=== PATIENT | male | born 1970 | race Caucasian/White ===

== ENCOUNTER 2016-12-13 10:51 | Inpatient (IN) | payer OTHER ==
[2016-12-13 11:54] VITALS: BMI 27.1
--- NOTE | 2016-12-13 15:00 | HP ---
COWS - Scale Resting Pulse: 1= [place] 81-100 Sweatin= Chills/Flushing Restless Observation: 3= Extraneous Movement Pupil Size: 2= Moderately Dilated Bone or Joint Aches: 4=Acute Joint/Muscle Pain Runny Nose/ Eye Tearin= Runny Nose/Eyes GI Upset > 30mins: 1= Stomach Cramp Tremor Observation: 1= Tremor [place], Not Seen Yawning Observation: 2= >3x During Session Anxiety or Irritability: 1=Feels Anxious/Irritable Goose Flesh Skin: 0=Smooth Skin COWS Score: 18 CIWA Score - CIWA Score Nausea/Vomitin-No Nausea/No Vomiting Muscle Tremors: 3 Anxiety: 5 Agitation: 4-Moderately Restless Paroxysmal Sweats: 1-Minimal Palms Moist Orientation: 0-Oriented Tacttile Disturbances: 3-Moderate Itch/Numb/Burn Auditory Disturbances: 0-None Visual Disturbances: 0-None Headache: 0-None Present CIWA-Ar Total Score: 16 Admission ROS BHS - HPI Chief Complaint: DETOX TX FOR HEROIN AND ALCOHOL DEPENDENCE Allergies/Adverse Reactions: Allergies Allergy/AdvReac Type Severity Reaction Status Date / Time No Known Allergies Allergy Verified 12/13/16 12:14 History of Present Illness: 46 Y/O H/M WITH A HX OF ALCOHOL AND HEROIN DEPENDENCE SEEKING DETOX TX. FIRST TIME HERE. Exam Limitations: No Limitations - Ebola screening Have you traveled outside of the country in the last 21 days: No Have you had contact with anyone from an Ebola affected area: No Have you been sick,other than usual withdrawal symptoms: No Do you have a fever: No - Review of Systems Constitutional: Chills, Night Sweats, Changes in sleep EENT: reports: Blurred Vision (WEARS GLASSES), Tearing, Nose Congestion, Dental Problems (MISSING TEETH) Respiratory: reports: Cough, Wheezing ("I WHEEZE SOMETIMES BECAUSE I SMOKE TOO MUCH". DENIES ASTHMA OR COPD.), Productive cough Cardiac: reports: No Symptoms Reported GI: reports: Constipated, Diarrhea : reports: No Symptoms Reported Musculoskeletal: reports: Back Pain, Muscle Pain Integumentary: reports: Bruising (IVD INJ SITES--BOTH ARMS) Neuro: reports: Tremors, Unsteady Gait Endocrine: reports: No Symptoms Reported Hematology: reports: No Symptoms Reported Psychiatric: reports: Orientated x3, Anxious, Depressed (AND ANXIETY) Other Systems: Reviewed and Negative Patient History - Patient Medical History Hx Anemia: No Hx Asthma: No Hx Chronic Obstructive Pulmonary Disease (COPD): No Hx Cardiac Disorders: No Hx Hypertension: Yes (ON MED) Hx Hypercholesterolemia: Yes HX Cerebrovascular Accident: No Hx Seizures: No Hx Diabetes: No Hx Gastrointestinal Disorders: No Hx Genitourinary Disorders: No Hx Sexually Transmitted Disorders: No Hx Renal Disease (ESRD): No Hx Thyroid Disease: No Hx Human Immunodeficiency Virus (HIV): Yes (SINCE 1992; ON MEDS;HX PCP PNEUMONIA /AIDS.) Hx Hepatitis C: Yes Hx Depression: Yes Hx Suicide Attempt: No (DENIES) Hx Schizophrenia: No - Patient Surgical History Past Surgical History: No Hx Neurologic Surgery: No Hx Cataract Extraction: No Hx Cardiac Surgery: No Hx Lung Surgery: No Hx Breast Surgery: No Hx Breast Biopsy: No Hx Abdominal Surgery: No Hx Appendectomy: No Hx Cholecystectomy: No Hx Genitourinary Surgery: No Hx Orthopedic Surgery: No Anesthesia Reaction: No - PPD History Previous Implant?: Yes Documented Results: Negative w/o proof Implanted On Prior [facility] Admission?: No PPD to be Administered?: Yes - Reproductive History Patient is a Female of Child Bearing Age (11 -55 yrs old): No (MALE) - Smoking Cessation Smoking history: Current every day smoker Have you smoked in the past 12 months: Yes Aproximately how many cigarettes per day: 20 Hx Chewing Tobacco Use: No Initiated information on smoking cessation: Yes 'Breaking Loose' booklet given: 12/13/16 - Substance & Tx. History Hx Alcohol Use: Yes (BEER/VODKA) Hx Substance Use: Yes (HEROIN) Substance Use Type: Alcohol, Heroin Hx Substance Use Treatment: Yes - Substances Abused Heroin Route: Injection Frequency: Daily Amount used: 5-8 bags Age of first use: 15 Date of Last Use: 12/13/16 Alcohol Route: Oral Frequency: Daily Amount used: 2-3 40 oz beers Age of first use: 15 Date of Last Use: 12/12/16 Family Disease History - Family Disease History Family History: Denies Admission Physical Exam BHS - Vital Signs Vital Signs: Vital Signs - 24 hr 12/13/16 11:52 Temperature 98.3 F Pulse Rate 82 Respiratory 20 Rate Blood Pressure 130/71 - Physical General Appearance: Yes: Moderate Distress, Irritable, Anxious HEENTM: Yes: EOMI, Normocephalic, LINDA, Pharynx Normal, Nasal Congestion Respiratory: Yes: Chest Non-Tender, Lungs Clear (GROSSLY CLEAR), No Respiratory Distress Neck: Yes: Supple, Trachea in good position Breast: Yes: Breast Exam Deferred Cardiology: Yes: Regular Rhythm, Regular Rate, S1, S2 Abdominal: Yes: Normal Bowel Sounds, Non Tender, Soft Genitourinary: Yes: Other (N/C) Back: Yes: Within Normal Limits Musculoskeletal: Yes: full range of Motion, Gait Steady Extremities: Yes: Normal Range of Motion, Non-Tender 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: 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 NML intact, Fully Oriented, Alert Integumentary: Yes: Dry, Warm, Track [place] (RIGHT ELBOW > LEFT ELBOW) Lymphatic: Yes: Within Normal Limits - Diagnostic (1) Alcohol dependence with uncomplicated withdrawal Current Visit: Yes Status: Acute (2) Opioid dependence with withdrawal Current Visit: Yes Status: Acute (3) AIDS (acquired immune deficiency syndrome) Current Visit: Yes Status: Chronic (4) Hypertension Current Visit: Yes Status: Chronic Qualifiers: Hypertension type: essential hypertension Qualified Code(s): I10 - Essential (primary) hypertension (5) History of hepatitis C Current Visit: Yes Status: Chronic Cleared for Admission [facility] - Detox or Rehab [facility] Level of Care: Medically Managed Detox Regimen/Protocol: Methadone/Librium S Breath Alcohol Content Breath Alcohol Content: 0 Urine Drug Screen - Results Drug Screen Negative: No Urine Drug Screen Results: OPI-Opiates, BZO-Benzodiazepines, TCA-Tricyclic Antidepress
[2016-12-13] MEDS ORDERED: LOPERAMIDE HCL 2 MG CAPSULE PO PRN (15:08)
[2016-12-13] MEDS ORDERED: ACETAMINOPHEN 325 MG TABLET (FP) PO PRN (15:08)
[2016-12-13] MEDS ORDERED: MAGNESIUM CITRATE 300 ML BOTTLE PO PRN (15:08)
[2016-12-13] MEDS ORDERED: diphenhydrAMINE HCL 50 MG CAPSULE PO PRN (15:08)
[2016-12-13] MEDS ORDERED: NICOTINE POLACRILEX 4 MG GUM BUC PRN (15:08)
[2016-12-13] MEDS ORDERED: P-EPHED 60MG/TRIPROLIDI 2.5MG TABLET PO PRN (15:08)
[2016-12-13] MEDS ORDERED: MAG HYDROX/AL HYDROX/SIMETH 30 ML UNIT-DOSE CUP PO PRN (15:08)
[2016-12-13] MEDS ORDERED: MENTHOL/PHENOL 1 EACH UD MM PRN (15:08)
[2016-12-13] MEDS ORDERED: guaiFENesin/D-METHORPHAN HB 10 ML UNIT-DOSE CUPS PO PRN (15:08)
[2016-12-13] MEDS ORDERED: hydrOXYzine PAMOATE 25 MG CAPSULE (FP) PO PRN (15:08)
[2016-12-13] MEDS ORDERED: MAGNESIUM HYDROX 2400MG/30ML ORAL SUSPENSION 30 ML CUP PO PRN (15:08)
[2016-12-13] MEDS ORDERED: chlordiazePOXIDE HCL 25 MG CAPSULE PO ONE (15:21)
[2016-12-13] MEDS ORDERED: METHADONE HCL 10 MG TABLET (FOR DETOX USE ONLY) PO ONE ×2 (15:22→23:00)
[2016-12-13] MEDS ORDERED: PATIENT'S OWN MEDICATION (NON-FORMULARY) (Lisinopril/Hydrochlorothiazide [Lisinopril-Hctz PO SCH ×2 (15:30→15:44)
[2016-12-13] MEDS: NICOTINE 21 MG/24 HOURS TOPICAL PATCH TD SCH (15:58)
[2016-12-13] MEDS ORDERED: HYDROCHLOROTHIAZIDE 12.5 MG CAPSULE (FP) PO ONE (16:45)
[2016-12-13] MEDS: chlordiazePOXIDE HCL 25 MG CAPSULE PO SCH ×2 (17:49→22:03)
[2016-12-13 20:54] LABS: URINE APPEARANCE CLEAR; URINE BILIRUBIN NEGATIVE (NEGATIVE); URINE BLOOD NEGATIVE (NEGATIVE); URINE COLOR LTYELLOW; URINE GLUCOSE (UA) NEGATIVE (NEGATIVE); URINE KETONE NEGATIVE (NEGATIVE); URINE LEUK ESTERASE NEGATIVE (NEGATIVE); URINE NITRITE NEGATIVE (NEGATIVE); URINE PROTEIN NEGATIVE (NEGATIVE); URINE UROBILINOGEN NEGATIVE E.U./dl (0.2-1.0)
[2016-12-13] MEDS: BACITRACIN 0.9 GM PACKET TP SCH (22:02)
[2016-12-13] MEDS: THIAMINE HCL 100 MG TABLET (FP) PO SCH (22:02)
[2016-12-13] MEDS: PATIENT'S OWN MEDICATION (NON-FORMULARY) (Darunavir/Cobicistat [Prezcobix 800 Mg-150 Mg Ta PO SCH (22:02)
[2016-12-13] MEDS: PATIENT'S OWN MEDICATION (NON-FORMULARY) (Abacavir Sulfate/Lamivudine [Abacavir-Lamivudine PO SCH (22:02)
[2016-12-14] MEDS: chlordiazePOXIDE HCL 25 MG CAPSULE PO SCH ×4 (06:12→22:08)
--- NOTE | 2016-12-14 09:37 | CONSULT ---
[facility] Psychiatric Consult - Data Date of interview: 12/14/16 Admission source: [facility] Identifying data: Second admission to [facility] for this 46 y/o male seeking detox treatment on for heroin and alcohol dependence.Patient is single without children,domiciled,unemployed and supported on [email or web address] funds. Substance Abuse History: - Smoking Cessation. Smoking history: Current every day smoker. Have you smoked in the past 12 months: Yes. Aproximately how many cigarettes per day: 20. Hx Chewing Tobacco Use: No. Initiated information on smoking cessation: Yes. 'Breaking Loose' booklet given: 12/13/16. - Substance & Tx. History. Hx Alcohol Use: Yes (BEER/VODKA). Hx Substance Use: Yes (HEROIN ). Substance Use Type: Alcohol, Heroin. Hx Substance Use Treatment: Yes. - Substances Abused. Heroin. Route: Injection. Frequency: Daily. Amount used: 5-8 bags. Age of first use: 15. Date of Last Use: 12/13/16. Alcohol. Route: Oral. Frequency: Daily. Amount used: 2-3 40 oz beers. Age of first use: 15. Date of Last Use: 12/12/16. These data are reviewed with the patient in this interview.He confirmed ses patterns of abuse. Medical History: Remarkable for HIV infection since 1992,hypertension,hepatitis C. Psychiatric History: Patient denies history of psychiatric hospitalizations.However he reports that he has been seeing his primary care physician for complaint of insomnia and dysphoria.Mr Moore is prescribed elavil 100 mg/hs + remeron 30 mg/hs.Last taken on 12/12/16 as per self-report.No reported history of suicide attempts. Physical/Sexual Abuse/Trauma History: Patient denies. Mental Status Exam - Mental Status Exam Alert and Oriented to: Time, Place, Person Cognitive Function: Good Patient Appearance: Well Groomed Mood: Nervous, Withdrawn Affect: Mood Congruent Patient Behavior: Fatigued, Talkative, Appropriate, Cooperative Speech Pattern: Clear, Appropriate Voice Loudness: Normal Thought Process: Intact Thought Disorder: Not Present Hallucinations: Denies Suicidal Ideation: Denies Homicidal Ideation: Denies Insight/Judgement: Poor Sleep: Poorly, Difficulty falling asleep Appetite: Good Muscle strength/Tone: Normal Gait/Station: Normal Psychiatric Findings - Problem List ([place] 1, 2,3) (1) Alcohol dependence with uncomplicated withdrawal Current Visit: Yes Status: Acute (2) Opioid dependence with withdrawal Current Visit: Yes Status: Acute (3) Nicotine dependence Current Visit: Yes Status: Acute (4) Substance-induced sleep disorder Current Visit: Yes Status: Acute (5) AIDS (acquired immune deficiency syndrome) Current Visit: Yes Status: Chronic (6) History of hepatitis C Current Visit: Yes Status: Chronic (7) Hypertension Current Visit: Yes Status: Chronic Qualifiers: Hypertension type: essential hypertension Qualified Code(s): I10 - Essential (primary) hypertension - Initial Treatment Plan Initial Treatment Plan: Psychoeducation.Detoxification.Medications :elavil 50 mg po hs + remeron 30 mg po hs.Side effects/benefits discussed with the patient.He agrees with plan.Observation.
[2016-12-14] MEDS ORDERED: METHADONE HCL 10 MG TABLET (FOR DETOX USE ONLY) PO SCH (10:00)
[2016-12-14 10:06] LABS: MCH 27.7 pg (25.7-33.7); MCHC 32.7 g/dl (32.0-35.9); MEAN CELL VOLUME 84.6 fl (80-96); MEAN PLT VOLUME 8.1 fl (7.5-11.1); PLATELET COUNT 263 K/MM3 (134-434)
[2016-12-14] MEDS: PRENATAL VITAMINS W/ FOLIC ACID TABLET (FP) PO SCH (10:07)
[2016-12-14] MEDS: NICOTINE 21 MG/24 HOURS TOPICAL PATCH TD SCH (10:08)
[2016-12-14] MEDS: PROPRANOLOL HCL 10 MG TABLET (FP) PO SCH (10:08)
[2016-12-14] MEDS: HYDROCHLOROTHIAZIDE 12.5 MG CAPSULE (FP) PO SCH (10:08)
[2016-12-14] MEDS: BACITRACIN 0.9 GM PACKET TP SCH ×2 (10:09→22:07)
--- NOTE | 2016-12-14 10:34 | PN ---
S CIWA - CIWA Score Nausea/Vomitin Muscle Tremors: 3 Anxiety: 2 Agitation: 3 Paroxysmal Sweats: 2 Orientation: 0-Oriented Tacttile Disturbances: 0-None Auditory Disturbances: 1-Very Mild Visual Disturbances: 2-Mild Sensitivity Headache: 2-Mild CIWA-Ar Total Score: 17 S COWS - Scale Resting Pulse: 0= [place] 80 or Below Sweatin=Flushed/Facial Moisture Restless Observation: 1= Difficult to Sit Still Pupil Size: 2= Moderately Dilated Bone or Joint Aches: 0= None Runny Nose/ Eye Tearin= Runny Nose/Eyes GI Upset > 30mins: 0= None Tremor Observation of Outstretched Hands: 1= Tremor [place], Not Seen Yawning Observation: 1= 1-2x During Session Anxiety or Irritability: 2=Irritable/Anxious Goose Flesh Skin: 0=Smooth Skin COWS Score: 11 [facility] Progress Note (SOAP) Objective: 12/14/16 10:33 Laboratory Tests 12/13/16 12/14/16 19:00 06:00 WBC 8.0 RBC 4.44 Hgb 12.3 Hct 37.6 MCV 84.6 MCHC 32.7 RDW 16.0 H Plt Count 263 MPV 8.1 Urine Color Ltyellow Urine Appearance Clear Urine pH 7.0 Ur Specific [place] 1.012 Urine Protein Negative Urine Glucose (UA) Negative Urine Ketones Negative Urine Blood Negative Urine Nitrite Negative Urine Bilirubin Negative Urine Urobilinogen Negative Ur Leukocyte Esterase Negative Vital Signs - 24 hr 12/13/16 12/13/16 12/13/16 11:52 17:50 22:09 Temperature 98.3 F 98.4 F 97.9 F Pulse Rate 82 79 81 Respiratory 20 18 18 Rate Blood Pressure 130/71 122/69 141/95 12/14/16 12/14/16 12/14/16 00:30 03:30 06:44 Temperature 97.4 F L Pulse Rate 65 Respiratory 18 18 16 Rate Blood Pressure 102/51 12/14/16 09:42 Temperature 97.9 F Pulse Rate 78 Respiratory 16 Rate Blood Pressure 109/61 remainder pending Assessment: 12/14/16 10:33 ongoing withdrawal Plan: continue detox psychiatrist
[2016-12-14 10:39] LABS: ALBUMIN 3.6 g/dl (3.4-5.0); ALK PHOS 111 U/L (45-117); ANION GAP 10 (8-16); BILIRUBIN,TOTAL 0.3 mg/dL (0.2-1.0); CALCIUM 8.9 mg/dL (8.5-10.1); CO2 25 mmol/L (21-32); CREATININE 0.9 mg/dL (0.7-1.3); GLUCOSE,RANDOM 119 mg/dL (74-106); SGOT/AST 16 U/L (15-37); SGPT/ALT 22 U/L (12-78); TOT PROT 8.5 g/dl (6.4-8.2)
[2016-12-14 11:04] LABS: SICKLE CELL SCREEN NEGATIVE (NEGATIVE)
--- NOTE | 2016-12-14 16:13 | EKG ---
Test Reason : Blood Pressure : / mmHG Vent. Rate : 072 BPM Atrial Rate : 072 BPM P-R Int : 148 ms QRS Dur : 094 ms QT Int : 384 ms P-R-T Axes : 054 031 056 degrees QTc Int : 420 ms NORMAL SINUS RHYTHM NO PREVIOUS ECGS AVAILABLE Confirmed by SEAN SAUCEDO MD ([id number]) on 12/14/2016 4:12:40 PM Referred By: Srinivasa Josue Confirmed By:SEAN SAUCEDO MD
[2016-12-14] MEDS: AMITRIPTYLINE HCL 25 MG TABLET (FP) PO SCH (22:07)
[2016-12-14] MEDS: THIAMINE HCL 100 MG TABLET (FP) PO SCH (22:07)
[2016-12-14] MEDS: PATIENT'S OWN MEDICATION (NON-FORMULARY) (Darunavir/Cobicistat [Prezcobix 800 Mg-150 Mg Ta PO SCH (22:07)
[2016-12-14] MEDS: PATIENT'S OWN MEDICATION (NON-FORMULARY) (Abacavir Sulfate/Lamivudine [Abacavir-Lamivudine PO SCH (22:07)
[2016-12-14] MEDS: MIRTAZAPINE 30 MG TABLET (FP) PO SCH (22:08)
[2016-12-15] MEDS: IBUPROFEN 400 MG TABLET (FP) PO PRN ×2 (00:34→11:16)
[2016-12-15] MEDS: chlordiazePOXIDE HCL 25 MG CAPSULE PO SCH ×2 (05:14→10:11)
[2016-12-15] MEDS: NICOTINE 21 MG/24 HOURS TOPICAL PATCH TD SCH (09:38)
[2016-12-15] MEDS ORDERED: METHADONE HCL 5 MG TABLET (FOR DETOX USE ONLY) PO SCH (10:00)
[2016-12-15] MEDS: HYDROCHLOROTHIAZIDE 12.5 MG CAPSULE (FP) PO SCH (10:08)
[2016-12-15] MEDS: PRENATAL VITAMINS W/ FOLIC ACID TABLET (FP) PO SCH (10:08)
[2016-12-15] MEDS: BACITRACIN 0.9 GM PACKET TP SCH ×2 (10:08→22:11)
[2016-12-15] MEDS: PROPRANOLOL HCL 10 MG TABLET (FP) PO SCH (10:08)
--- NOTE | 2016-12-15 10:37 | PN ---
[facility] CIWA - CIWA Score Nausea/Vomitin Muscle Tremors: 4-Moderate,w/Arms Extend Anxiety: 4-Mod. Anxious/Guarded Agitation: 4-Moderately Restless Paroxysmal Sweats: 3 Orientation: 0-Oriented Tacttile Disturbances: 0-None Auditory Disturbances: 0-None Visual Disturbances: 0-None Headache: 0-None Present CIWA-Ar Total Score: 18 [facility] COWS - Scale Resting Pulse: 0= [place] 80 or Below Sweatin= Chills/Flushing Restless Observation: 1= Difficult to Sit Still Pupil Size: 1= Pupils >than Normal Bone or Joint Aches: 1= Mild Discomfort Runny Nose/ Eye Tearin= Nasal Congestion GI Upset > 30mins: 2= Nausea/Diarrhea Tremor Observation of Outstretched Hands: 2= Slight Tremor Visible Yawning Observation: 1= 1-2x During Session Goose Flesh Skin: 3=Piloerection [facility] Progress Note (SOAP) Subjective: nausea, sweats, interrutped sleep, anxiety, tremors Objective: 12/15/16 10:36 Vital Signs - 24 hr 12/14/16 12/14/16 12/14/16 13:55 17:36 21:31 Temperature 97.9 F 97.9 F 97.0 F L Pulse Rate 68 66 79 Respiratory 18 18 18 Rate Blood Pressure 98/60 115/57 109/64 12/15/16 12/15/16 12/15/16 00:30 03:24 06:00 Temperature 97.3 F L Pulse Rate 62 Respiratory 18 18 18 Rate Blood Pressure 93/60 12/15/16 10:12 Temperature 97.5 F L Pulse Rate 77 Respiratory 16 Rate Blood Pressure 117/61 Laboratory Tests 12/13/16 12/14/16 12/14/16 19:00 06:00 06:00 WBC 8.0 RBC 4.44 Hgb 12.3 Hct 37.6 MCV 84.6 MCHC 32.7 RDW 16.0 H Plt Count 263 MPV 8.1 Sickle Cell Screen Negative Sodium 135 L Potassium 4.4 Chloride 100 Carbon Dioxide 25 Anion Gap 10 BUN 12 Creatinine 0.9 Creat Clearance w eGFR > 60 Random Glucose 119 H Calcium 8.9 Total Bilirubin 0.3 AST 16 ALT 22 Alkaline Phosphatase 111 Total Protein 8.5 H Albumin 3.6 Urine Color Ltyellow Urine Appearance Clear Urine pH 7.0 Ur Specific [place] 1.012 Urine Protein Negative Urine Glucose (UA) Negative Urine Ketones Negative Urine Blood Negative Urine Nitrite Negative Urine Bilirubin Negative Urine Urobilinogen Negative Ur Leukocyte Esterase Negative RPR Titer 12/14/16 06:00 WBC RBC Hgb Hct MCV MCHC RDW Plt Count MPV Sickle Cell Screen Sodium Potassium Chloride Carbon Dioxide Anion Gap BUN Creatinine Creat Clearance w eGFR Random Glucose Calcium Total Bilirubin AST ALT Alkaline Phosphatase Total Protein Albumin Urine Color Urine Appearance Urine pH Ur Specific [place] Urine Protein Urine Glucose (UA) Urine Ketones Urine Blood Urine Nitrite Urine Bilirubin Urine Urobilinogen Ur Leukocyte Esterase RPR Titer Nonreactive Assessment: 12/15/16 10:36 withdrawal sx Plan: cont detox, fluids, ambulation
[2016-12-15] MEDS: chlordiazePOXIDE 5 MG CAPSULE PO SCH (17:16)
[2016-12-15] MEDS: MIRTAZAPINE 30 MG TABLET (FP) PO SCH (22:06)
[2016-12-15] MEDS: AMITRIPTYLINE HCL 25 MG TABLET (FP) PO SCH (22:06)
[2016-12-15] MEDS: THIAMINE HCL 100 MG TABLET (FP) PO SCH (22:06)
[2016-12-15] MEDS: PATIENT'S OWN MEDICATION (NON-FORMULARY) (Darunavir/Cobicistat [Prezcobix 800 Mg-150 Mg Ta PO SCH (22:06)
[2016-12-15] MEDS: PATIENT'S OWN MEDICATION (NON-FORMULARY) (Abacavir Sulfate/Lamivudine [Abacavir-Lamivudine PO SCH (22:11)
[2016-12-16] MEDS: chlordiazePOXIDE 5 MG CAPSULE PO SCH ×2 (01:04→06:41)
--- NOTE | 2016-12-16 10:16 | DS ---
[facility] Detox Discharge Summary Admission Date: 12/13/16 Discharge Date: 12/16/16 - History Present History: Alcohol Dependence, Opioid Dependence Pertinent Past History: AIDS HTN HEP C - Physical Exam Results Vital Signs: Vital Signs Temperature 97.5 F L 12/16/16 06:00 Pulse Rate 67 12/16/16 06:00 Respiratory Rate 18 12/16/16 06:00 Blood Pressure 102/58 12/16/16 06:00 O2 Sat by Pulse Oximetry (%) Pertinent Admission Physical Exam Findings: WITHDRAWAL SX. Laboratory Last Values WBC 8.0 K/mm3 (4.0-10.0) 12/14/16 06:00 RBC 4.44 M/mm3 (4.00-5.60) 12/14/16 06:00 Hgb 12.3 GM/dL (11.7-16.9) 12/14/16 06:00 Hct 37.6 % (35.4-49) 12/14/16 06:00 MCV 84.6 fl (80-96) 12/14/16 06:00 MCHC 32.7 g/dl (32.0-35.9) 12/14/16 06:00 RDW 16.0 % (11.9-15.9) H 12/14/16 06:00 Plt Count 263 K/MM3 (134-434) 12/14/16 06:00 MPV 8.1 fl (7.5-11.1) 12/14/16 06:00 Sickle Cell Screen Negative (NEGATIVE) 12/14/16 06:00 Sodium 135 mmol/L (136-145) L 12/14/16 06:00 Potassium 4.4 mmol/L (3.5-5.1) 12/14/16 06:00 Chloride 100 mmol/L (98-107) 12/14/16 06:00 Carbon Dioxide 25 mmol/L (21-32) 12/14/16 06:00 Anion Gap 10 (8-16) 12/14/16 06:00 BUN 12 mg/dL (7-18) 12/14/16 06:00 Creatinine 0.9 mg/dL (0.7-1.3) 12/14/16 06:00 Creat Clearance w eGFR > 60 (>60) 12/14/16 06:00 Random Glucose 119 mg/dL (74-106) H 12/14/16 06:00 Calcium 8.9 mg/dL (8.5-10.1) 12/14/16 06:00 Total Bilirubin 0.3 mg/dL (0.2-1.0) 12/14/16 06:00 AST 16 U/L (15-37) 12/14/16 06:00 ALT 22 U/L (12-78) 12/14/16 06:00 Alkaline Phosphatase 111 U/L (45-117) 12/14/16 06:00 Total Protein 8.5 g/dl (6.4-8.2) H 12/14/16 06:00 Albumin 3.6 g/dl (3.4-5.0) 12/14/16 06:00 Urine Color Ltyellow 12/13/16 19:00 Urine Appearance Clear 12/13/16 19:00 Urine pH 7.0 (5.0-8.0) 12/13/16 19:00 Ur Specific [place] 1.012 (1.001-1.035) 12/13/16 19:00 Urine Protein Negative (NEGATIVE) 12/13/16 19:00 Urine Glucose (UA) Negative (NEGATIVE) 12/13/16 19:00 Urine Ketones Negative (NEGATIVE) 12/13/16 19:00 Urine Blood Negative (NEGATIVE) 12/13/16 19:00 Urine Nitrite Negative (NEGATIVE) 12/13/16 19:00 Urine Bilirubin Negative (NEGATIVE) 12/13/16 19:00 Urine Urobilinogen Negative E.U./dl (0.2-1.0) 12/13/16 19:00 Ur Leukocyte Esterase Negative (NEGATIVE) 12/13/16 19:00 RPR Titer Nonreactive (NONREACTIVE) 12/14/16 06:00 LABS NOTED - Medication Discharge Medications: Ambulatory Orders Abacavir Sulfate/Lamivudine [Abacavir-Lamivudine 600-300 mg] 1 each PO DAILY Amitriptyline HCl [Elavil -] 100 mg PO HS 12/13/16 Darunavir/Cobicistat [Prezcobix 800 mg-150 mg Tablet] 1 each PO DAILY 12/13/16 Lisinopril/Hydrochlorothiazide [Lisinopril-Hctz 10-12.5 mg Tab] 1 each PO DAILY 12/13/16 Mirtazapine [Remeron -] 30 mg PO HS 12/13/16 Propranolol HCl [Inderal -] 10 mg PO DAILY 12/13/16 Mirtazapine [Remeron -] 30 mg PO DAILY #30 tablet 12/15/16 - Diagnosis (1) Alcohol dependence with uncomplicated withdrawal Current Visit: Yes Status: Acute (2) Nicotine dependence Current Visit: Yes Status: Acute Qualifiers: Nicotine product type: cigarettes Substance use status: uncomplicated Qualified Code(s): F17.210 - Nicotine dependence, cigarettes, uncomplicated (3) Opioid dependence with withdrawal Current Visit: Yes Status: Acute (4) Substance-induced sleep disorder Current Visit: Yes Status: Acute (5) AIDS (acquired immune deficiency syndrome) Current Visit: Yes Status: Chronic (6) History of hepatitis C Current Visit: Yes Status: Chronic (7) Hypertension Current Visit: Yes Status: Chronic Qualifiers: Hypertension type: essential hypertension Qualified Code(s): I10 - Essential (primary) hypertension - AMA Did Patient Leave Against Medical Advice: Yes
[2016-12-16 10:25] VITALS: BP 116/66; PULSE 93; TEMP 96.3
[2016-12-16] MEDS ORDERED: chlordiazePOXIDE HCL 10 MG CAPSULE PO SCH (17:00)
[2016-12-17] MEDS ORDERED: METHADONE HCL 10 MG TABLET (FOR DETOX USE ONLY) PO SCH (10:00)
[2016-12-18] MEDS ORDERED: METHADONE HCL 5 MG TABLET (FOR DETOX USE ONLY) PO SCH (06:00)
== END 2016-12-16 09:15 | disposition left against medical advice (07) | DRG 770 ==
LOC: YASAS 10:51 → Y6N 12:47
PROVIDERS: ADMIT Internal Medicine Addiction Medicine; ATTEND Internal Medicine Addiction Medicine
PROC: HZ2ZZZZ Detoxification Services for Substance Abuse Treatment (ICD-10-PCS; principal; 2016-12-13)
DX: F11.23 Opioid dependence with withdrawal (principal); F10.230 Alcohol dependence with withdrawal, uncomplicated; F17.210 Nicotine dependence, cigarettes, uncomplicated; F19.282 Other psychoactive substance dependence with psychoactive substance-induced sleep disorder; B20 Human immunodeficiency virus [HIV] disease; B18.2 Chronic viral hepatitis C; I10 Essential (primary) hypertension; E78.00 Pure hypercholesterolemia, unspecified
CPT/HCPCS: 36415; 80053; 81003; 85027; 85660; 86593; 93005; 93010

== ENCOUNTER 2017-01-30 12:25 | Inpatient (IN) | payer OTHER ==
[2017-01-30 15:11] VITALS: BMI 29.0
--- NOTE | 2017-01-30 15:49 | HP ---
COWS - Scale Resting Pulse: 2= [place] 101-120 Sweatin=Flushed/Facial Moisture Restless Observation: 3= Extraneous Movement Pupil Size: 2= Moderately Dilated Bone or Joint Aches: 2= Severe Diffuse Aches Runny Nose/ Eye Tearin= Runny Nose/Eyes GI Upset > 30mins: 3= Vomiting/Diarrhea Tremor Observation: 2= Slight Tremor Visible Yawning Observation: 2= >3x During Session Anxiety or Irritability: 2=Irritable/Anxious Goose Flesh Skin: 0=Smooth Skin COWS Score: 22 Admission ROS S - HPI Chief Complaint: I NEED HELP TO STOP USING HEROIN Allergies/Adverse Reactions: Allergies Allergy/AdvReac Type Severity Reaction Status Date / Time No Known Allergies Allergy Verified 01/30/17 15:31 History of Present Illness: THIS 46 YEARS OLD MAL WITH HEROIN DEPENDENCE,WITHDRAWAL SYMPTOM,LAST DETOX [facility] 12/04 [facility] NOT COMPLETED HIV SINCE 1982 WEIGHT LOSS HEPATITTIS C HAS BEEN FOLLOWED UP WITH PMD ANXIETY AND DEPRESSION NO SIGNIFICANT PERIOD OF SOBRIETY Exam Limitations: No Limitations - Ebola screening Have you traveled outside of the country in the last 21 days: No Have you had contact with anyone from an Ebola affected area: No Have you been sick,other than usual withdrawal symptoms: No Do you have a fever: No - Review of Systems Constitutional: Chills, Diaphoresis, Loss of Appetite, Malaise, Night Sweats, Changes in sleep, Unintentional Wgt. Loss, Other EENT: reports: Tearing, Nose Congestion Respiratory: reports: No Symptoms reported Cardiac: reports: Palpitations GI: reports: Diarrhea, Nausea, Vomiting, Abdominal cramping : reports: No Symptoms Reported Musculoskeletal: reports: Back Pain, Joint Pain, Muscle Pain, Joint Stiffness Integumentary: reports: Dryness Neuro: reports: Headache, Tremors Endocrine: reports: No Symptoms Reported Hematology: reports: No Symptoms Reported Psychiatric: reports: Anxious, Depressed Patient History - Patient Medical History Hx Anemia: No Hx Asthma: No Hx Chronic Obstructive Pulmonary Disease (COPD): No Hx Cancer: No Hx Cardiac Disorders: No Hx Hypertension: Yes (ON MEDS.) Hx Hypercholesterolemia: Yes Hx Pacemaker: No HX Cerebrovascular Accident: No Hx Seizures: No Hx Dementia: No Hx Diabetes: No Hx Gastrointestinal Disorders: No Hx Liver Disease: No Hx Genitourinary Disorders: No Hx Sexually Transmitted Disorders: No Hx Renal Disease (ESRD): No Hx Thyroid Disease: No Hx Human Immunodeficiency Virus (HIV): Yes (SINCE 1992; ON MEDS;HX PCP PNEUMONIA /AIDS.) Hx Hepatitis C: Yes (UNDER THE CARE OF PMD AND BEING MONITOR) Hx Depression: Yes Hx Suicide Attempt: No Hx Bipolar Disorder: No Hx Schizophrenia: No Other Medical History: NO SUICIDAL,NO HOMICIDAL - Patient Surgical History Past Surgical History: No Hx Neurologic Surgery: No Hx Cataract Extraction: No Hx Cardiac Surgery: No Hx Lung Surgery: No Hx Breast Surgery: No Hx Breast Biopsy: No Hx Abdominal Surgery: No Hx Appendectomy: No Hx Cholecystectomy: No Hx Genitourinary Surgery: No Hx Orthopedic Surgery: No Anesthesia Reaction: No - PPD History Previous Implant?: Yes Documented Results: Negative w/proof Implanted On Prior [facility] Admission?: Yes Date: 12/15/16 Results: 0 MM PPD to be Administered?: No - Smoking Cessation Smoking history: Current every day smoker Have you smoked in the past 12 months: Yes Aproximately how many cigarettes per day: 20 Hx Chewing Tobacco Use: No Initiated information on smoking cessation: Yes 'Breaking Loose' booklet given: 01/30/17 - Substance & Tx. History Hx Alcohol Use: No Hx Substance Use: Yes Substance Use Type: Heroin Hx Substance Use Treatment: Yes ([facility] 12/04 NOT COMPLESTED) - Substances Abused Heroin Route: Injection Frequency: Daily Amount used: 6-10 BAGS Age of first use: 15 Date of Last Use: 01/30/17 Family Disease History - Family Disease History Family History: Denies Admission Physical Exam [facility] - Vital Signs Vital Signs: Vital Signs - 24 hr 01/30/17 15:07 Temperature 97.9 F Pulse Rate 101 H Respiratory 18 Rate Blood Pressure 118/78 - Physical General Appearance: Yes: Moderate Distress, Tremorous, Irritable, Sweating, Anxious HEENTM: Yes: Normal ENT Inspection, Normocephalic, Nasal Congestion Respiratory: Yes: Lungs Clear, Normal Breath Sounds, No Respiratory Distress Neck: Yes: Within Normal Limits, Supple, Trachea in good position Breast: Yes: Within Normal Limits Cardiology: Yes: Within Normal Limits, Regular Rhythm, Regular Rate, S1, S2 Abdominal: Yes: Within Normal Limits, Normal Bowel Sounds, Non Tender, Flat, Soft Genitourinary: Yes: Within Normal Limits Back: Yes: Muscle Spasm Musculoskeletal: Yes: Joint Stiffness, Muscle Pain Extremities: Yes: Within Normal Limits, Normal Range of Motion, Tremors 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, Fully Oriented, Alert, Motor Strength 5/5 Integumentary: Yes: Dry, Track [place] Lymphatic: Yes: Within Normal Limits - Diagnostic (1) Nicotine dependence Current Visit: No Status: Acute Qualifiers: Nicotine product type: cigarettes Substance use status: uncomplicated Qualified Code(s): F17.210 - Nicotine dependence, cigarettes, uncomplicated (2) Opioid dependence with withdrawal Current Visit: No Status: Acute (3) AIDS (acquired immune deficiency syndrome) Current Visit: No Status: Chronic (4) History of hepatitis C Current Visit: No Status: Chronic (5) Hypertension Current Visit: No Status: Chronic Qualifiers: Hypertension type: essential hypertension Qualified Code(s): I10 - Essential (primary) hypertension (6) Weight loss Current Visit: Yes Status: Acute (7) Anxiety and depression Current Visit: Yes Status: Acute Cleared for Admission [facility] - Detox or Rehab [facility] Level of Care: Medically Managed Detox Regimen/Protocol: Methadone [facility] Breath Alcohol Content Breath Alcohol Content: 0 Urine Drug Screen - Results Drug Screen Negative: No Urine Drug Screen Results: OPI-Opiates, TCA-Tricyclic Antidepress, OXY-Oxycodone
[2017-01-30] MEDS ORDERED: MAG HYDROX/AL HYDROX/SIMETH 30 ML UNIT-DOSE CUP PO PRN (16:05)
[2017-01-30] MEDS ORDERED: guaiFENesin/D-METHORPHAN HB 10 ML UNIT-DOSE CUPS PO PRN (16:05)
[2017-01-30] MEDS ORDERED: MENTHOL/PHENOL 1 EACH UD MM PRN (16:05)
[2017-01-30] MEDS ORDERED: hydrOXYzine PAMOATE 50 MG CAPSULE (FP) PO PRN (16:05)
[2017-01-30] MEDS ORDERED: IBUPROFEN 400 MG TABLET (FP) PO PRN (16:05)
[2017-01-30] MEDS ORDERED: ACETAMINOPHEN 325 MG TABLET (FP) PO PRN (16:05)
[2017-01-30] MEDS ORDERED: MAGNESIUM CITRATE 300 ML BOTTLE PO PRN (16:05)
[2017-01-30] MEDS ORDERED: P-EPHED 60MG/TRIPROLIDI 2.5MG TABLET PO PRN (16:05)
[2017-01-30] MEDS ORDERED: MAGNESIUM HYDROX 2400MG/30ML ORAL SUSPENSION 30 ML CUP PO PRN (16:05)
[2017-01-30] MEDS ORDERED: LOPERAMIDE HCL 2 MG CAPSULE PO PRN (16:05)
[2017-01-30] MEDS ORDERED: diphenhydrAMINE HCL 50 MG CAPSULE PO PRN (16:05)
[2017-01-30] MEDS ORDERED: CYCLOBENZAPRINE HCL 10 MG TABLET (FP) PO PRN (16:08)
[2017-01-30] MEDS ORDERED: METHADONE HCL 10 MG TABLET (FOR DETOX USE ONLY) PO ONE ×2 (17:00→23:00)
[2017-01-30] MEDS: diazePAM 5 MG TABLET PO PRN ×2 (17:14→22:10)
[2017-01-30] MEDS: NICOTINE 21 MG/24 HOURS TOPICAL PATCH TD SCH (17:21)
[2017-01-30 18:35] LABS: URINE APPEARANCE CLEAR; URINE BILIRUBIN NEGATIVE (NEGATIVE); URINE COLOR YELLOW; URINE GLUCOSE (UA) NEGATIVE (NEGATIVE); URINE KETONE NEGATIVE (NEGATIVE); URINE LEUK ESTERASE NEGATIVE (NEGATIVE); URINE NITRITE NEGATIVE (NEGATIVE); URINE PROTEIN NEGATIVE (NEGATIVE); URINE UROBILINOGEN NEGATIVE E.U./dl (0.2-1.0)
[2017-01-30 18:38] LABS: URINE BLOOD 1+ (NEGATIVE)
[2017-01-30 18:41] LABS: URINE BACTERIA RARE /hpf (NONE SEEN); URINE HYALINE CAST 15 /lpf; URINE MUCUS MANY; URINE RBC 2 /hpf (0-3); URINE WBC 1 /hpf (3-5)
[2017-01-30] MEDS ORDERED: THIAMINE HCL 100 MG TABLET (FP) PO SCH (22:00)
[2017-01-30] MEDS: PROPRANOLOL HCL 10 MG TABLET (FP) PO SCH (22:09)
[2017-01-30] MEDS: cloNIDine HCL 0.1 MG TABLET PO SCH (22:10)
[2017-01-31] MEDS: diazePAM 5 MG TABLET PO PRN ×2 (05:31→17:37)
--- NOTE | 2017-01-31 09:25 | PN ---
[facility] COWS - Scale Resting Pulse: 1= [place] 81-100 Sweatin= Chills/Flushing Restless Observation: 3= Extraneous Movement Pupil Size: 1= Pupils >than Normal Bone or Joint Aches: 2= Severe Diffuse Aches Runny Nose/ Eye Tearin= Runny Nose/Eyes GI Upset > 30mins: 3= Vomiting/Diarrhea Tremor Observation of Outstretched Hands: 2= Slight Tremor Visible Yawning Observation: 1= 1-2x During Session Anxiety or Irritability: 2=Irritable/Anxious Goose Flesh Skin: 0=Smooth Skin COWS Score: 18 [facility] Progress Note (SOAP) Subjective: ALERT,IRRITABLE,ANXIOUS,INTERRUPTED SLEEP,.TREMOR,PAIN IN THE BODY AND BACK Objective: 01/31/17 09:22 01/31/17 09:22 Vital Signs Temperature 98.3 F 01/31/17 06:36 Pulse Rate 83 01/31/17 06:36 Respiratory Rate 18 01/31/17 06:36 Blood Pressure 115/67 01/31/17 06:36 O2 Sat by Pulse Oximetry (%) 01/31/17 09:23 EKG NSR,NORMAL ECG Laboratory Last Values Urine Color Yellow 01/30/17 17:45 Urine Appearance Clear 01/30/17 17:45 Urine pH 5.0 (5.0-8.0) D 01/30/17 17:45 Ur Specific [place] 1.020 (1.001-1.035) 01/30/17 17:45 Urine Protein Negative (NEGATIVE) 01/30/17 17:45 Urine Glucose (UA) Negative (NEGATIVE) 01/30/17 17:45 Urine Ketones Negative (NEGATIVE) 01/30/17 17:45 Urine Blood 1+ (NEGATIVE) H 01/30/17 17:45 Urine Nitrite Negative (NEGATIVE) 01/30/17 17:45 Urine Bilirubin Negative (NEGATIVE) 01/30/17 17:45 Urine Urobilinogen Negative E.U./dl (0.2-1.0) 01/30/17 17:45 Ur Leukocyte Esterase Negative (NEGATIVE) 01/30/17 17:45 Urine RBC 2 /hpf (0-3) 01/30/17 17:45 Urine WBC 1 /hpf (3-5) 01/30/17 17:45 Urine Bacteria Rare /hpf (NONE SEEN) 01/30/17 17:45 Hyaline Casts 15 /lpf 01/30/17 17:45 Urine Mucus Many 01/30/17 17:45 LABS PENDING Assessment: 01/31/17 09:24 WITHDRAWAL SYMPTOM Plan: CONTINUE DETOX
[2017-01-31 09:57] LABS: MCH 27.4 pg (25.7-33.7); MCHC 31.9 g/dl (32.0-35.9); MEAN CELL VOLUME 85.8 fl (80-96); MEAN PLT VOLUME 8.6 fl (7.5-11.1); PLATELET COUNT 230 K/MM3 (134-434); WHITE BLOOD COUNT 8.7 K/mm3 (4.0-10.0)
[2017-01-31] MEDS ORDERED: PRENATAL VITAMINS W/ FOLIC ACID TABLET (FP) PO SCH (10:00)
[2017-01-31] MEDS ORDERED: CHOLECALCIFEROL (VITAMIN D3) 1,000 UNIT TABLET (FP) PO SCH (10:00)
[2017-01-31] MEDS ORDERED: METHADONE HCL 10 MG TABLET (FOR DETOX USE ONLY) PO ONE (10:00)
[2017-01-31] MEDS ORDERED: PATIENT'S OWN MEDICATION (NON-FORMULARY) (Darunavir/Cobicistat [Prezcobix 800 Mg-150 Mg Ta PO SCH ×2 (10:00→20:00)
[2017-01-31] MEDS ORDERED: PATIENT'S OWN MEDICATION (NON-FORMULARY) (Abacavir Sulfate/Lamivudine [Abacavir-Lamivudine PO SCH ×2 (10:00→20:00)
[2017-01-31] MEDS: PROPRANOLOL HCL 10 MG TABLET (FP) PO SCH (10:09)
[2017-01-31] MEDS: cloNIDine HCL 0.1 MG TABLET PO SCH (10:09)
[2017-01-31] MEDS: NICOTINE 21 MG/24 HOURS TOPICAL PATCH TD SCH (10:10)
[2017-01-31 10:21] LABS: ALBUMIN 3.7 g/dl (3.4-5.0); ALK PHOS 106 U/L (45-117); ANION GAP 8 (8-16); BILIRUBIN,TOTAL 0.4 mg/dL (0.2-1.0); CALCIUM 9.5 mg/dL (8.5-10.1); CO2 30 mmol/L (21-32); GLUCOSE,RANDOM 128 mg/dL (74-106); SGOT/AST 16 U/L (15-37); SGPT/ALT 26 U/L (12-78); TOT PROT 8.5 g/dl (6.4-8.2)
--- NOTE | 2017-01-31 11:34 | CONSULT ---
[facility] Psychiatric Consult - Data Date of interview: 01/31/17 Admission source: [facility] Identifying data: This is 46 years old male with no psychiatric hospitalizatiopn history intoxicated with Alcohol, Opioids and Nicotine Substance Abuse History: - Smoking Cessation. Smoking history: Current every day smoker. Have you smoked in the past 12 months: Yes. Aproximately how many cigarettes per day: 20. Hx Chewing Tobacco Use: No. Initiated information on smoking cessation: Yes. 'Breaking Loose' booklet given: 01/30/17. - Substance & Tx. History. Hx Alcohol Use: No. Hx Substance Use: Yes. Substance Use Type : Heroin. Hx Substance Use Treatment: Yes ([facility] 12/04 NOT COMPLESTED). - Substances Abused. Heroin. Route: Injection. Frequency: Daily. Amount used: 6-10 BAGS. Age of first use: 15. Date of Last Use: 01/30/17 Medical History: Weight loss, AIDS, HepC+, HTNN, Obesity Psychiatric History: Patient rep[orts history of depression and anxiety, reports taking prior to admission: Elavil 100mg po qhs. Remeron 30mg po qhs Physical/Sexual Abuse/Trauma History: Denies Additional Comment: Elavil 100mg po qhs. Remeron 30mg po qhs Mental Status Exam - Mental Status Exam Alert and Oriented to: Person Cognitive Function: Fair Patient Appearance: Unkempt Mood: Sad Affect: Mood Congruent, Normal Range Patient Behavior: Cooperative Speech Pattern: Appropriate Voice Loudness: Normal Thought Process: Goal Oriented Thought Disorder: Being Controlled Hallucinations: Denies Suicidal Ideation: Denies Homicidal Ideation: Denies Insight/Judgement: Fair Sleep: Difficulty falling asleep Appetite: Weight gain Muscle strength/Tone: Mild Hypotonicity Gait/Station: Shuffling Additional Comments: Elavil 100mg po qhs. Remeron 30mg po qhs Psychiatric Findings - Problem List ([place] 1, 2,3) (1) Anxiety and depression Current Visit: Yes Status: Acute (2) Alcohol dependence with uncomplicated withdrawal Current Visit: No Status: Acute (3) Nicotine dependence Current Visit: No Status: Acute Qualifiers: Nicotine product type: cigarettes Substance use status: uncomplicated Qualified Code(s): F17.210 - Nicotine dependence, cigarettes, uncomplicated (4) Opioid dependence with withdrawal Current Visit: No Status: Acute (5) Substance-induced sleep disorder Current Visit: No Status: Acute (6) Drug-induced mood disorder Current Visit: Yes Status: Acute - Initial Treatment Plan Initial Treatment Plan: Elavil 100mg po qhs. Remeron 30mg po qhs
--- NOTE | 2017-01-31 15:26 | EKG ---
Test Reason : Blood Pressure : / mmHG Vent. Rate : 095 BPM Atrial Rate : 095 BPM P-R Int : 144 ms QRS Dur : 094 ms QT Int : 322 ms P-R-T Axes : 070 031 056 degrees QTc Int : 404 ms NORMAL SINUS RHYTHM NORMAL ECG WHEN COMPARED WITH ECG OF 13-DEC-2016 15:46, NO SIGNIFICANT CHANGE WAS FOUND Confirmed by JN DAMON MD ([id number]) on 01/31/2017 3:26:18 PM Referred By: Confirmed By:JN ADMON MD
[2017-01-31 17:21] VITALS: BP 122/66; PULSE 72; TEMP 98.2
--- NOTE | 2017-01-31 19:16 | DS ---
[id number] Present History: Opioid Dependence Additional Comments: received nurse call patient insisted to leave the facility, refused to wait face to face with provider refused eprescription agree to consider follow up care as per arranged by the counselor Pertinent Past History: hiv hypertension - Physical Exam Results Vital Signs: Vital Signs Temperature 98.2 F 01/31/17 17:20 Pulse Rate 72 01/31/17 17:20 Respiratory Rate 18 01/31/17 17:20 Blood Pressure 122/66 01/31/17 17:20 O2 Sat by Pulse Oximetry (%) Pertinent Admission Physical Exam Findings: withdrawal sx Laboratory Last Values WBC 8.7 K/mm3 (4.0-10.0) 01/31/17 06:00 RBC 4.47 M/mm3 (4.00-5.60) 01/31/17 06:00 Hgb 12.2 GM/dL (11.7-16.9) 01/31/17 06:00 Hct 38.3 % (35.4-49) 01/31/17 06:00 MCV 85.8 fl (80-96) 01/31/17 06:00 MCHC 31.9 g/dl (32.0-35.9) L 01/31/17 06:00 RDW 17.0 % (11.9-15.9) H 01/31/17 06:00 Plt Count 230 K/MM3 (134-434) 01/31/17 06:00 MPV 8.6 fl (7.5-11.1) 01/31/17 06:00 Sodium 137 mmol/L (136-145) 01/31/17 06:00 Potassium 4.2 mmol/L (3.5-5.1) 01/31/17 06:00 Chloride 99 mmol/L (98-107) 01/31/17 06:00 Carbon Dioxide 30 mmol/L (21-32) 01/31/17 06:00 Anion Gap 8 (8-16) 01/31/17 06:00 BUN 19 mg/dL (7-18) H D 01/31/17 06:00 Creatinine 1.0 mg/dL (0.7-1.3) 01/31/17 06:00 Creat Clearance w eGFR > 60 (>60) 01/31/17 06:00 Random Glucose 128 mg/dL (74-106) H 01/31/17 06:00 Calcium 9.5 mg/dL (8.5-10.1) 01/31/17 06:00 Total Bilirubin 0.4 mg/dL (0.2-1.0) D 01/31/17 06:00 AST 16 U/L (15-37) 01/31/17 06:00 ALT 26 U/L (12-78) 01/31/17 06:00 Alkaline Phosphatase 106 U/L (45-117) 01/31/17 06:00 Total Protein 8.5 g/dl (6.4-8.2) H 01/31/17 06:00 Albumin 3.7 g/dl (3.4-5.0) 01/31/17 06:00 Urine Color Yellow 01/30/17 17:45 Urine Appearance Clear 01/30/17 17:45 Urine pH 5.0 (5.0-8.0) D 01/30/17 17:45 Ur Specific [place] 1.020 (1.001-1.035) 01/30/17 17:45 Urine Protein Negative (NEGATIVE) 01/30/17 17:45 Urine Glucose (UA) Negative (NEGATIVE) 01/30/17 17:45 Urine Ketones Negative (NEGATIVE) 01/30/17 17:45 Urine Blood 1+ (NEGATIVE) H 01/30/17 17:45 Urine Nitrite Negative (NEGATIVE) 01/30/17 17:45 Urine Bilirubin Negative (NEGATIVE) 01/30/17 17:45 Urine Urobilinogen Negative E.U./dl (0.2-1.0) 01/30/17 17:45 Ur Leukocyte Esterase Negative (NEGATIVE) 01/30/17 17:45 Urine RBC 2 /hpf (0-3) 01/30/17 17:45 Urine WBC 1 /hpf (3-5) 01/30/17 17:45 Urine Bacteria Rare /hpf (NONE SEEN) 01/30/17 17:45 Hyaline Casts 15 /lpf 01/30/17 17:45 Urine Mucus Many 01/30/17 17:45 RPR Titer Nonreactive (NONREACTIVE) 01/31/17 06:00 lab noted - Treatment Hospital Course: Detox Protocol Followed, Responded well - Medication Discharge Medications: Ambulatory Orders Abacavir Sulfate/Lamivudine [Abacavir-Lamivudine 600-300 mg] 1 each PO DAILY Amitriptyline HCl [Elavil -] 100 mg PO HS 12/13/16 Darunavir/Cobicistat [Prezcobix 800 mg-150 mg Tablet] 1 each PO DAILY 12/13/16 Lisinopril/Hydrochlorothiazide [Lisinopril-Hctz 10-12.5 mg Tab] 1 each PO DAILY 12/13/16 Mirtazapine [Remeron -] 30 mg PO HS 12/13/16 Propranolol HCl [Inderal -] 10 mg PO BID 12/13/16 Cholecalciferol (Vitamin D3) [Vitamin D3 -] 2,000 unit PO DAILY 01/30/17 Amitriptyline HCl [Elavil -] 100 mg PO HS #30 tablet 01/31/17 Mirtazapine [Remeron -] 30 mg PO HS #30 tablet 01/31/17 - Diagnosis (1) Alcohol dependence with uncomplicated withdrawal Status: Acute (2) Opioid dependence with withdrawal Status: Acute (3) AIDS (acquired immune deficiency syndrome) Status: Acute (4) Hypertension Status: Acute Qualifiers: Hypertension type: essential hypertension Qualified Code(s): I10 - Essential (primary) hypertension - AMA Did Patient Leave Against Medical Advice: Yes
[2017-01-31] MEDS ORDERED: AMITRIPTYLINE HCL 100 MG TABLET PO SCH (22:00)
[2017-01-31] MEDS ORDERED: MIRTAZAPINE 30 MG TABLET (FP) PO SCH (22:00)
[2017-02-01] MEDS ORDERED: METHADONE HCL 5 MG TABLET (FOR DETOX USE ONLY) PO ONE (10:00)
[2017-02-02] MEDS ORDERED: METHADONE HCL 5 MG TABLET (FOR DETOX USE ONLY) PO ONE (10:00)
[2017-02-03] MEDS ORDERED: METHADONE HCL 10 MG TABLET (FOR DETOX USE ONLY) PO ONE (10:00)
[2017-02-04] MEDS ORDERED: METHADONE HCL 5 MG TABLET (FOR DETOX USE ONLY) PO ONE (06:00)
== END 2017-01-31 09:05 | disposition left against medical advice (07) | DRG 770 ==
LOC: YASAS 12:25 → Y3N 16:02
PROVIDERS: ADMIT Internal Medicine; ATTEND Internal Medicine
PROC: HZ2ZZZZ Detoxification Services for Substance Abuse Treatment (ICD-10-PCS; principal; 2017-01-31)
DX: F11.23 Opioid dependence with withdrawal (principal); F10.230 Alcohol dependence with withdrawal, uncomplicated; F17.210 Nicotine dependence, cigarettes, uncomplicated; F19.24 Other psychoactive substance dependence with psychoactive substance-induced mood disorder; F19.282 Other psychoactive substance dependence with psychoactive substance-induced sleep disorder; F41.8 Other specified anxiety disorders; B20 Human immunodeficiency virus [HIV] disease; B18.2 Chronic viral hepatitis C; R63.4 Abnormal weight loss; Z68.29 Body mass index [BMI] 29.0-29.9, adult
CPT/HCPCS: 36415; 80053; 81003; 81015; 85027; 86593; 87522; 93005; 93010